=== PATIENT | female | born 1975 | race Two or more races ===

== ENCOUNTER 2019-08-26 15:10 | Emergency (ER) | payer SELFPAY ==
[~2019-08-26] VITALS: Ht 165.1 cm; Wt 92.0 kg
[2019-08-26 15:15] VITALS: BP 174/104
--- NOTE | 2019-08-26 16:54 | NUR ---
Patient/Caregiver given discharge instructions and they have confirmed that they understand the instructions. Patient ambulatory with steady gait. PT LEFT WITH ALL PERSONAL BELONIGINGS.
== END 2019-08-26 16:56 | disposition home or self-care (01) ==
LOC: ED 16:50
DX: J02.8 Acute pharyngitis due to other specified organisms (principal); I10 Essential (primary) hypertension; B97.89 Other viral agents as the cause of diseases classified elsewhere
CPT/HCPCS: 99283